=== PATIENT | male | born 1945 | race Caucasian/White ===

== ENCOUNTER → 2023-03-02 | Outpatient (CLI) | payer MEDICARE, OTHER ==
--- NOTE | 2023-03-02 18:09 | Diagnostic Imaging Report ---
INDICATION: Bilateral wrist pain. TIME OF EXAM: 1:04 p.m. Three views of the left and three views of the right wrist were obtained. 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 Distal radius and ulna are intact. Carpus and visualized metacarpals appear intact. Right wrist is unremarkable apart from some vascular calcifications present. There are vascular calcifications on the right as well. No fractures are seen. IMPRESSION: Chronic changes. No acute bony abnormality is identified. Dictated by: Dictated on workstation # [id number]
== END ==
LOC: ORTHO 12:46
PROVIDERS: ATTEND Orthopaedic Surgery
DX: M19.032 Primary osteoarthritis, left wrist (principal); M25.531 Pain in right wrist
CPT/HCPCS: 73110; G0463; 99203